=== PATIENT | female | born 1955 ===

== ENCOUNTER → 2023-05-14 10:49 | Outpatient (POV) | payer MEDICARE, SELFPAY ==
--- NOTE | 2023-05-14 10:58 | EXP.PAIN.OV ---
HPI Data of Consult Patient: new to practice Consult date: 05/14/23 Requesting Physician: Nat Maloney APRN Consult Narrative Reason for consult: Chronic neck pain, bilateral shoulder/arm pain History of present illness: Ms. Jimenez is a 68 year old female who presents today as a new patient. She is a referral from Everton Maloney's office. Today she rates her pain an 8 out of 10. Patient states her pain is all in her neck with radiating symptoms into her shoulders and arms. Patient does describe this is an aching, throbbing sensation with cracking and popping with certain range of motion exercises. She also states she does have numbness and tingling into her upper extremities. Patient states this is been going on progressively for years and continues to worsen. She does state that she did just have a recent fall last month at her home while she was trying to go up steps while carrying a container of emma litter. She states that she did miss a step and fell back causing a facial laceration and a black eye. Patient states that she feels like her neck pain may have been worsened due to this injury. Patient states that she has been in pain management for over 4 years however that they recently were closing the office to move to a little the location and she does not want to travel that far. She states she did previously have multiple injections at this facility however they would only work hit or miss and they were very short term on how long they lasted. Patient states that she has also been to chiropractor and physical therapy in the past however this worsened her symptoms. Patient was previously prescribed Percocet 20 mg multiple times per day along with tramadol 50 mg 3 times daily in between and she states this medication did help with her pain symptoms. She is requesting if we can take over these prescriptions. Patient does believe that she has had imaging of her cervical spine within the last couple of years. Patient has recently had a x-ray at the beginning of April at [facility]. She does state that since that the office closed she has not been on any recent pain medications patient is currently managed with clonazepam 1 mg 3 times a day from an outside provider. Patient also states that she has a significant cardiac history and her doctor has told her that he does not want her on muscle relaxers. Her Alek is [id number]. Its been reviewed and appropriate. CC: Nat Maloney APRN [facility] Disclaimer: The information contained in this section may have been updated after the patient was seen, as this information can be updated by other users. Medical History (Updated 05/14/23 @ 11:37 by Nat Maloney APRN) Asthma HTN (hypertension) Thyroid disease Surgical History (Updated 05/14/23 @ 11:00 by Mar Lopez RN) H/O: hysterectomy History of back surgery History of total knee arthroplasty Family History (Updated 05/14/23 @ 10:59 by Mar Lopez RN) Other Heart disease Seizures Stroke Social History Smoking Status: Unknown if ever smoked alcohol intake: never current occupational status: other Travel in the last 8 weeks: None Review of Systems Review of Systems Review of systems:: pertinent systems reviewed and negative unless documented below Review of systems (narrative): Review of Systems: General: No recent weight changes, no fever, no sleep disturbances Respiratory: No cough, no shortness of air, no recurring pulmonary infections Cardiovascular/peripheral vascular: No chest pain, no palpitations, no edema, no shortness of breath Gastrointestinal: No new onset incontinence, normal bowel movements reported Genitourinary: No new onset incontinence Musculoskeletal: Neck pain, shoulder pain, arm pain Psychiatric: [Normal mood/affect] Neurological: [Denies weakness in extremities], [denies balance issues] Meds Home Medications and Allergies New Prescriptions to Start Prescriptions: Objec
[2023-05-14 11:45] VITALS: BP 108/54; PULSE 66; RESP 18; O2SAT 96; BMI 24.7
== END ==
PROVIDERS: Visit Provider Nurse Practitioner Family
DX: M47.22 Other spondylosis with radiculopathy, cervical region; G89.4 Chronic pain syndrome; M54.2 Cervicalgia; M25.511 Pain in right shoulder; M25.512 Pain in left shoulder
CPT/HCPCS: 99202; G0463